=== PATIENT | female | born 2000 | race Caucasian/White ===

== ENCOUNTER 2021-05-06 09:00 | Outpatient (CLI) | payer OTHER | END 2021-05-06 09:15 | disposition home or self-care (01) | LOC: PPH VACUNA 09:00 | PROVIDERS: ATTEND Emergency Medicine Pediatric Emergency Medicine | DX: Z23 Encounter for immunization (principal) ==

== ENCOUNTER 2023-04-05 05:50 | Day surgery (SDC) | payer OTHER ==
[2023-04-05] MEDS ORDERED: NAPR500T14 PO (10:52)
[2023-04-05] MEDS ORDERED: MORGIDOX100 MG PO (10:52)
== END 2023-04-05 13:15 | disposition home or self-care (01) ==
LOC: CIR.AMB 05:50
PROVIDERS: ATTEND Obstetrics & Gynecology
DX: D25.0 Submucous leiomyoma of uterus (principal); N84.0 Polyp of corpus uteri; N92.5 Other specified irregular menstruation; I10 Essential (primary) hypertension; Z20.822 Contact with and (suspected) exposure to COVID-19